=== PATIENT | female | born 1995 | race Caucasian/White ===

== ENCOUNTER 2016-08-08 14:42 | Emergency (ER) | payer SELFPAY ==
[2016-08-08 14:47] VITALS: BP 129/86
--- NOTE | 2016-08-08 15:08 | ER Document Report ---
HPI - HPI Patient complains to provider of: ankle injury Pain Level: 3 Context: 21 yo female c/o pain to left ankle. rolled ankle coming down stairs at home. no weight bearing tolerated Associated Symptoms: None Exacerbated by: Movement, Walking Relieved by: Denies Similar symptoms previously: No - DERM Skin Color: Normal Past Medical History - General Information source: Patient - Social History Smoking Status: Never Smoker Frequency of alcohol use: None Drug Abuse: None Lives with: Spouse/Significant other Family History: Reviewed & Not Pertinent Patient has suicidal ideation: No Patient has homicidal ideation: No - Medical History Medical History: Negative Renal/ Medical History: Denies: Hx Peritoneal Dialysis Vertical Provider Document - CONSTITUTIONAL Agree With Documented VS: Yes Exam Limitations: No Limitations - INFECTION CONTROL TRAVEL OUTSIDE OF THE [place] IN LAST 30 DAYS: No - HEENT HEENT: Atraumatic, Normocephalic, PERRLA - NECK Neck: Normal Inspection, Supple - RESPIRATORY Respiratory: Breath Sounds Normal, No Respiratory Distress O2 Sat by Pulse Oximetry: 100 - CARDIOVASCULAR Cardiovascular: Regular Rate - GI/ABDOMEN Gastrointestinal: Abdomen Soft, Abdomen Non-Tender - BACK Back: Normal Inspection - MUSCULOSKELETAL/EXTREMETIES Musculoskeletal/Extremeties: Tender - left lateral malleolus edematous, tender. Course - Re-evaluation Re-evalutation: 08/08/16 15:10 pt evaluated. xrays ordered. will continue to monitor 08/08/16 15:57 xrays negative. results reviewed with patient. aircast and crutches ordered. pt is stable for discharge - Vital Signs Vital signs: Temp Pulse Resp BP Pulse Ox 97.6 F 91 16 129/86 H 100 08/08/16 14:47 08/08/16 14:47 08/08/16 14:47 08/08/16 14:47 08/08/16 14:47 Discharge - Discharge Clinical Impression: Left ankle sprain Qualifiers: Encounter type: initial encounter Involved ligament of ankle: unspecified ligament Qualified Code(s): S93.402A - Sprain of unspecified ligament of left ankle, initial encounter Condition: Stable Disposition: HOME, SELF-CARE Instructions: Ankle Stirrup Splint ([facility]), Use of Crutches ([facility]), Ice & Elevation ([facility]), Oral Narcotic Medication ([facility]), Sprained Ankle ([facility]), Ibuprofen (General) ([facility]) Additional Instructions: your xrays are negative for fracture, but a soft tissue injury such as tendon or ligamental injury cannot be ruled out please wear your splint for comfort and protection use crutches until you are able to bear weight without pain take your anti-inflammatory medication as prescribed take your pain medication as needed follow up with your primary care is pain persists more than 10 days Prescriptions: Hydrocodone/Acetaminophen [[place] 5-325 mg Tablet] 1 tab PO Q4H PRN #10 tablet PRN Reason: Ibuprofen [Motrin 800 Mg Tablet] 800 mg PO Q6H #20 tablet Forms: Restricted Release, Return to Work
== END 2016-08-08 16:24 | disposition home or self-care (01) ==
LOC: ER 14:42
DX: S93.402A Sprain of unspecified ligament of left ankle, initial encounter (principal); M25.572 Pain in left ankle and joints of left foot; X50.0XXA Overexertion from strenuous movement or load, initial encounter; Y92.009 Unspecified place in unspecified non-institutional (private) residence as the place of occurrence of the external cause
CPT/HCPCS: 99283; 73610; 73630; L1902